=== PATIENT | female | born 2000 | race African-American/Black ===

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

== ENCOUNTER 2022-05-19 21:52 | Inpatient (IN) ==
[2022-05-19] MEDS ORDERED: miSOPROStoL 200 MCG TABLET RECTAL PRN (22:10)
[2022-05-19] MEDS ORDERED: TRANEXAMIC ACID 1,000 MG in SODIUM CHLORIDE 0.9% 100 ML IV PRN (22:10)
[2022-05-19] MEDS ORDERED: MEPERIDINE 50 MG/1 ML VIAL IV PRN (22:10)
[2022-05-19] MEDS ORDERED: CARBOPROST TROMETHAMINE 250 MCG/ML AMP IM PRN (22:10)
[2022-05-19] MEDS ORDERED: METHYLERGONOVINE 0.2 MG/1 ML AMP IM PRN (22:10)
[2022-05-19] MEDS ORDERED: OXYTOCIN/LR 20 UNIT/1,000 ML BAG IV ONE (22:10)
[2022-05-19] MEDS ORDERED: LACTATED RINGERS 1,000 ML IV ONE (22:10)
[2022-05-19] MEDS ORDERED: ONDANSETRON 4 MG/2 ML VIAL IV PRN (22:10)
[2022-05-19] MEDS: LACTATED RINGERS 1,000 ML IV SCH (22:31)
[2022-05-19] MEDS: BUTORPHANOL 2 MG/ML VIAL IV PRN (22:33)
[2022-05-19 22:51] LABS: Basophils % 0.1 % (0.0-0.8); Eosinophils % 0.1 % (0.00-10.9); Hematocrit 32.5 VOL% (35.7-47.0); Hemoglobin 10.7 GM/DL (12.0-16.0); Immature Granulocytes % 0.4 %; Immature Granulocytes Absolute 0.06 #; Lymphocytes % 12.3 % (21.3-54.2); Mean Corpuscular HGB Conc 32.9 GM/DL (32-36); Mean Corpuscular Volume 92.1 FL (87-102); Mean Platelet Volume 10.6 FL (9.6-12.0); Monocytes # 1.1 10*3/uL (0.11-0.8); Monocytes % 6.5 % (1.7-12.7); Neutrophils % 80.6 % (38.7-73.9); Platelet Count 246 T/CUMM (130-400); Red Blood Count 3.53 MC/CUMM (3.8-5.5); White Blood Count 16.16 T/CUMM (4-12)
[2022-05-19 23:15] LABS: Albumin 2.9 G/DL (3.4-5.0); Bilirubin,Total 0.7 MG/DL (0.20-1.00); Calcium 8.9 MG/DL (8.5-10.1); Osmolality,Calculated 269.8 MOS/KG (273-304); Potassium 3.5 MMOL/L (3.5-5.1); Total Protein 7.9 G/DL (6.4-8.2)
[2022-05-20 00:50] LABS: RPR Confirm - Less than 1 yr REACTIVE (Nonreactive)
[2022-05-20] MEDS: BUTORPHANOL 2 MG/ML VIAL IV PRN ×2 (01:24→04:30)
[2022-05-20] MEDS: LACTATED RINGERS 1,000 ML IV SCH (06:55)
[2022-05-20] MEDS ORDERED: LACTATED RINGERS 250 ML IV PRN (07:11)
[2022-05-20] MEDS ORDERED: FAMOTIDINE 20 MG/2 ML VIAL IV ONE (07:11)
[2022-05-20] MEDS ORDERED: LACTATED RINGERS 1,000 ML IV ONE (07:11)
[2022-05-20] MEDS ORDERED: PROMETHAZINE 25 MG/1 ML VIAL IM ONE (07:11)
[2022-05-20] MEDS ORDERED: hydrOXYzine HCL 25 MG/1 ML VIAL IM PRN (07:11)
[2022-05-20] MEDS ORDERED: NALOXONE 0.4 MG/ML VIAL IV PRN (07:11)
[2022-05-20] MEDS ORDERED: diphenhydrAMINE 50 MG/1 ML VIAL IV PRN ×2 (07:11)
[2022-05-20] MEDS ORDERED: ePHEDrine 50 MG/ML VIAL IV PRN (07:11)
[2022-05-20] MEDS ORDERED: CITRIC ACID/SODIUM CITRATE 30 ML UDCUP PO ONE (07:11)
[2022-05-20] MEDS ORDERED: OXYTOCIN/LR 20 UNIT/1,000 ML BAG IV SCH (07:30)
[2022-05-20] MEDS ORDERED: LACTATED RINGERS 1,000 ML IV SCH (07:30)
[2022-05-20] MEDS ORDERED: fentaNYL 2 MCG/ROPIV 0.2% EPID 100 ML EPIDURAL SCH (07:30)
[2022-05-20 09:56] LABS: Mucus,Urine Occasional /LPF (Occasional); Protein,Urine Trace mg/dL (Negative); RBC,Urine 1 /HPF (0-4); Squamous Epithelial Cell,Urine Occasional /HPF (0-10); Urine Appearance Clear (Clear); Urine Color Yellow (Yellow); Urine pH 7.5 (4.5-8.0)
[2022-05-20 09:57] LABS: Bilirubin,Urine Negative (Negative); Blood, Urine Negative (Negative); Glucose,Urine (UA) Negative (Negative); Ketones,Urine 80 mg/dL (Negative); Nitrite,Urine Negative (Negative)
[2022-05-20] MEDS ORDERED: AMPICILLIN INJ 2,000 MG in SODIUM CHLORIDE 0.9% 100 ML IV SCH (12:00)
[2022-05-20] MEDS ORDERED: fentaNYL 100 MCG/2 ML VIAL ONE (13:56)
[2022-05-20] MEDS ORDERED: ROPIVACAINE 0.5% 30 ML VIAL ONE (13:59)
[2022-05-20] MEDS ORDERED: ACETAMINOPHEN 500 MG TABLET PO ONE (14:11)
[2022-05-20] MEDS ORDERED: GENTAMICIN INJ 100 MG in SODIUM CHLORIDE 0.9% 100 ML IV SCH (14:30)
[2022-05-20] MEDS ORDERED: MEASLES/MUMPS/RUBELLA VACCINE 0.5 ML VIAL SUBCUT ONE (17:38)
[2022-05-20] MEDS ORDERED: LANOLIN 50% CREAM 0.3 OZ TUBE TOP PRN (17:38)
[2022-05-20] MEDS ORDERED: WITCH HAZEL PADS 100/JAR TOP PRN (17:38)
[2022-05-20] MEDS ORDERED: HYDROCORTISONE 2.5% RECTAL CREAM 30 GM TUBE TOP PRN (17:38)
[2022-05-20] MEDS ORDERED: BENZOCAINE 20%/MENTHOL 0.5% SPRAY 56 GM CAN TOP PRN (17:38)
[2022-05-20] MEDS ORDERED: ACETAMINOPHEN 325 MG TABLET PO PRN (17:38)
[2022-05-20] MEDS ORDERED: OXYTOCIN/LR 20 UNIT/1,000 ML BAG IV ONE (17:38)
[2022-05-20] MEDS ORDERED: RHO(D) IMMUNE GLOBULIN 300 MCG SYRINGE IM ONE (17:38)
[2022-05-20] MEDS ORDERED: BISACODYL 10 MG SUPP RECTAL PRN (17:38)
[2022-05-20] MEDS ORDERED: DIPH/TET/ACEL PERT BOOSTER VACCINE 0.5 ML VIAL IM ONE (17:38)
[2022-05-20] MEDS: IBUPROFEN 800 MG TABLET PO PRN (17:50)
[2022-05-20] MEDS: AMPICILLIN INJ 2,000 MG in SODIUM CHLORIDE 0.9% 100 ML IV SCH (18:39)
[2022-05-20] MEDS: oxyCODONE/ACETAMINOPHEN 5-325 MG TABLET PO PRN (19:52)
[2022-05-20] MEDS: DOCUSATE SODIUM 100 MG CAPSULE PO SCH (21:19)
[2022-05-21] MEDS: AMPICILLIN INJ 2,000 MG in SODIUM CHLORIDE 0.9% 100 ML IV SCH (01:03)
[2022-05-21] MEDS: oxyCODONE/ACETAMINOPHEN 5-325 MG TABLET PO PRN ×3 (01:27→22:31)
[2022-05-21] MEDS: IBUPROFEN 800 MG TABLET PO PRN ×2 (03:35→16:37)
[2022-05-21] MEDS ORDERED: SIMETHICONE CHEW 80 MG TABLET PO PRN ×2 (03:42→04:18)
[2022-05-21 06:16] LABS: Basophils % 0.1 % (0.0-0.8); Eosinophils # 0.1 10*3/uL (0.0-0.87); Eosinophils % 0.3 % (0.00-10.9); Hematocrit 27.2 VOL% (35.7-47.0); Hemoglobin 9.1 GM/DL (12.0-16.0); Immature Granulocytes % 0.8 %; Immature Granulocytes Absolute 0.21 #; Lymphocytes # 2.5 10*3/uL (1.4-4.0); Lymphocytes % 9.5 % (21.3-54.2); Mean Corpuscular HGB Conc 33.5 GM/DL (32-36); Mean Corpuscular Volume 94.1 FL (87-102); Mean Platelet Volume 10.7 FL (9.6-12.0); Monocytes # 2.6 10*3/uL (0.11-0.8); Monocytes % 9.9 % (1.7-12.7); Neutrophils % 79.4 % (38.7-73.9); Platelet Count 217 T/CUMM (130-400); Red Blood Count 2.89 MC/CUMM (3.8-5.5); Red Cell Distribution Width 16.2 % (9.3-17.3); White Blood Count 26.45 T/CUMM (4-12)
[2022-05-21 06:44] LABS: Band Neutrophils 9 % (0-10); Lymphocytes 6 % (20-55); Total Cells Counted 100
[2022-05-21 06:45] LABS: Microcytosis 1+; Platelet Estimate Adequate
[2022-05-21] MEDS: DOCUSATE SODIUM 100 MG CAPSULE PO SCH ×2 (09:39→21:17)
[2022-05-22] MEDS: oxyCODONE/ACETAMINOPHEN 5-325 MG TABLET PO PRN ×4 (04:24→18:26)
[2022-05-22 07:26] VITALS: BP 93/58
[2022-05-22] MEDS: DOCUSATE SODIUM 100 MG CAPSULE PO SCH (09:11)
== END 2022-05-22 18:20 | disposition home or self-care (01) | DRG 560 ==
LOC: N.LDOUT 21:52 → N.LD 21:53 → N.OB 05-20 17:25
PROVIDERS: ADMIT Obstetrics & Gynecology; ATTEND Obstetrics & Gynecology